=== PATIENT | male | born 1990 | race Caucasian/White ===

== ENCOUNTER 2018-05-16 03:10 | Emergency (ER) | payer OTHER ==
[2018-05-16] MEDS ORDERED: Ibuprofen 600 MG Tab PO ONE (03:33)
--- NOTE | 2018-05-16 03:34 | EDM.PDOC ---
ED HPI GENERAL MEDICAL PROBLEM - General Stated Complaint: RT HAND INJURY Time Seen by Provider: 05/16/18 03:10 Source of Information: Reports: Patient, Family History Limitations: Reports: No Limitations - History of Present Illness INITIAL COMMENTS - FREE TEXT/NARRATIVE: 27 y.o. came to the ed with his family after he cought right hand in between doors. He c/o swelling and decr movement of his right hand. No other acute medical issues. BP 125/56 RR 17 Pulse ox 97% on RA Temp 36.6 pulse 81. Onset: Today Onset Date: 05/16/18 Onset Time: 02:00 Duration: Hour(s): Location: Reports: Upper Extremity, Right (hand) Quality: Reports: Burning, Dull, Pressure Improves with: Reports: Cold Therapy, Rest Worsens with: Reports: Movement Context: Reports: Trauma (hand between doors) Associated Symptoms: Reports: No Other Symptoms Rt hand Pain Score (Numeric/FACES): 7 - Related Data Allergies Allergy/AdvReac Type Severity Reaction Status Date / Time No Known Allergies Allergy Verified 05/16/18 03:26 Home Meds: Home Meds NK [No Known Home Meds] 05/16/18 [History] Past Medical History - Past Health History Medical/Surgical History: Denies Medical/Surgical History - Infectious Disease History Infectious Disease History: Reports: TB Other Infectious Disease History: states that he was diagnosed with TB when he was young. Social & Family History - Family History Family Medical History: Noncontributory Review of Systems - Review of Systems Review Of Systems: See Below Constitutional: Reports: No Symptoms Eyes: Reports: No Symptoms Ears: Reports: No Symptoms Nose: Reports: No Symptoms Mouth/Throat: Reports: No Symptoms Respiratory: Reports: No Symptoms Cardiovascular: Reports: No Symptoms GI/Abdominal: Reports: No Symptoms Genitourinary: Reports: No Symptoms Musculoskeletal: Reports: Hand Pain Skin: Reports: Wound (abrasion) Neurological: Reports: No Symptoms Psychiatric: Reports: No Symptoms ED EXAM, GENERAL - Physical Exam Exam: See Below Exam Limited By: No Limitations General Appearance: Alert, WD/WN, Mild Distress Eye Exam: Bilateral Eye: Normal Inspection Ears: Normal External Exam Ear Exam: Bilateral Ear: Auricle Normal Nose: Normal Inspection, Normal Mucosa, No Blood Throat/Mouth: Normal Inspection, Normal Lips, Normal Gums, Normal Voice, No Airway Compromise Head: Atraumatic, Normocephalic Neck: Normal Inspection, Supple, Non-Tender, Full Range of Motion Respiratory/Chest: No Respiratory Distress, Lungs Clear, Normal Breath Sounds, Chest Non-Tender Cardiovascular: Normal Peripheral Pulses, Regular Rate, Rhythm, No Edema, No Gallop, No JVD, No Murmur Peripheral Pulses: 1+: Brachial (L) GI/Abdominal: Normal Bowel Sounds, Soft, Non-Tender, No Organomegaly (Male) Exam: Deferred Rectal (Males) Exam: Deferred Back Exam: Normal Inspection, Full Range of Motion Extremities: Normal Capillary Refill, Other (swelling of right hand, dorsal aspect) Neurological: Alert, Oriented, CN II-XII Intact, Normal Cognition, Normal Gait, No Motor/Sensory Deficits Psychiatric: Normal Affect, Normal Mood Skin Exam: Warm, Dry, Normal Color, No Rash, Other (abrasion right hand, dorsal aspect) Lymphatic: No Adenopathy Course - Vital Signs Text/Narrative:: 27 y.o.wm came to the ed with his family after he cought right hand in between doors. He c/o swelling and decr movement of his right hand. No other acute medical issues. TD UTD (< 5 years) BP 125/56 RR 17 Pulse ox 97% on RA Temp 36.6 pulse 81. PE: 27 y.o.w.m. with right hand swelling Imaging: R hand: NAD, official report is pending Imaging: Right hand: NAD Impression: Right hand sprain with soft tissue swelling/ abrasion Tx: Neosporine ointment, ICE, Motrin at home Reexam: Improved Plan: D/C with instructions Last Recorded V/S: Last Vital Signs Temp 36.7 C 05/16/18 03:10 Pulse 98 05/16/18 03:10 Resp 17 05/16/18 03:10 BP 125/66 05/16/18 03:10 Pulse Ox 96 05/16/18 03:10 - Orders/Labs/Meds Orders: Active Orders 24 hr Category Date Time Status Hand Comp Min 3V Rt [CR] Stat Exams 05/16/18 03:32 Taken Meds: Medications Discontinued Medications Generic Name Dose Route Start Last Admin Trade Name Freq PRN Reason Stop Dose Admin Ibuprofen 600 mg 05/16/18 03:33 05/16/18 03:52 Motrin PO 05/16/18 03:34 600 mg ONETIME ONE Administration Departure - Departure Time of Disposition: 04:24 Disposition: Home, Self-Care 01 Condition: Good Clinical Impression: Sprain of hand, right Qualifiers: Encounter type: initial encounter Qualified Code(s): S63.91XA - Sprain of unspecified part of right wrist and hand, initial encounter Abrasion hand Qualifiers: Encounter type: initial encounter Laterality: right Qualified Code(s): S60.511A - Abrasion of right hand, initial encounter - Discharge Information Instructions: Abrasion, [id number], Hand Pain Referrals: PCP,Unknown [Primary Care Provider] - Forms: ED Return to Work/School Form Additional Instructions: Rest, Ice and elevation of right hand, please apply neosporine to right hand abrasion, please f/u, come back if your symptoms get worse acutely - My Orders Last 24 Hours: My Active Orders 05/16/18 03:32 Hand Comp Min 3V Rt [CR] Stat - Assessment/Plan Last 24 Hours: My Active Orders 05/16/18 03:32 Hand Comp Min 3V Rt [CR] Stat
[2018-05-16 03:36] VITALS: BP 125/66
== END 2018-05-16 04:40 | disposition home or self-care (01) ==
LOC: FB.ED 03:10
DX: S63.91XA Sprain of unspecified part of right wrist and hand, initial encounter (principal); W23.0XXA Caught, crushed, jammed, or pinched between moving objects, initial encounter
CPT/HCPCS: 73130-RT; 99283; A9270-GY